=== PATIENT | male | born 1945 | race Caucasian/White ===

== ENCOUNTER → 2017-05-06 | Outpatient (CLI) | payer MEDICARE, BC ==
[~2017-05-06] MED LIST: AMLO10TA2 PO; ASPI325T80 PO; ATOR40TA78 PO; B&C/1TAB2 PO; CLON-364 PO; LISI-170 PO; METO25TA35 PO; OMEP-110 PO; ZOLP10TA5 PO
== END ==
LOC: CFH 07:34
PROVIDERS: ATTEND Internal Medicine Cardiovascular Disease
DX: I25.10 Atherosclerotic heart disease of native coronary artery without angina pectoris (principal); E78.5 Hyperlipidemia, unspecified; I10 Essential (primary) hypertension; I25.2 Old myocardial infarction
CPT/HCPCS: 93306